=== PATIENT | male | born 2000 | race Caucasian/White ===

== ENCOUNTER → 2021-04-06 | Outpatient (CLI) | payer BC ==
--- NOTE | 2021-04-06 20:00 | ECHOF ---
Referral Reason:R94.31 Abnormal EKG MEASUREMENTS -------- HEIGHT: 182.9 cm WEIGHT: 77.1 kg BP: IVSd: 0.9 cm (0.6 - 1.1) LVIDd: 4.8 cm (3.9 - 5.3) LVPWd: 0.7 cm (0.6 - 1.1) EDV(Teich): 110 ml IVSs: 1.2 cm LVIDs: 3.0 cm LVPWs: 1.5 cm %IVS Thck: 30 % ESV(Teich): 35 ml EF(Teich): 68 % %FS: 38 % SV(Teich): 74 ml RVIDd: 3.5 cm (< 3.3) LALs A4C: 4.6 cm LAAs A4C: 15.1 cm LAESV A-L A4C: 43 ml LAESV MOD A4C: 41 ml LALs A2C: 5.1 cm LAAs A2C: 16.5 cm LAESV A-L A2C: 46 ml LAESV MOD A2C: 45 ml LAESV(A-L): 46 ml LAESV Index (A-L): 23.36 ml/m Ao Diam: 3.1 cm (2.0 - 3.7) LA Diam: 3.2 cm (2.7 - 3.8) AV Cusp: 2.3 cm (1.5 - 2.6) EPSS: 0.5 cm MV E Paul: 0.98 m/s MV DecT: 245 ms MV Dec [place]: 4.0 m/s MV A Paul: 0.33 m/s MV E/A Ratio: 2.94 MV PHT: 71 ms LVOT Vmax: 1.36 m/s LVOT maxP.43 mmHg TR Vmax: 2.44 m/s TR maxP.77 mmHg RAP: 5.00 mmHg RVSP: 28.77 mmHg MV EF SLOPE: 158.26 mm/s (70 - 150) MV EXCURSION: 23.89 mm (> 18.000) FINDINGS -------- Resting bradycardia (HR<60bpm). This was a technically adequate study. The left ventricular size is normal. Left ventricular wall thickness is normal. Overall left vent ricular systolic function is normal with, an EF between 55 - 60 %. The diastolic filling pattern is normal for the age of the patient 7.81. The right ventricle is mildly enlarged. Normal LA size by volume 22+/-6 ml/m2. The right atrial size is normal. Interatrial and interventricular septum intact. The aortic valve is trileaflet and appears structurally normal. There is no evidence of aortic regu rgitation. There is no evidence of aortic stenosis. There is trace mitral regurgitation. Mild tricuspid regurgitation present. There is no evidence of pulmonary hypertension. The right v entricular systolic pressure, as measured by Doppler, is 28.77mmHg. Trace/mild (physiologic) pulmonic regurgitation. The aortic root size is normal. IVC Not well visulized. There is no pericardial effusion. CONCLUSIONS -------- 1. The left ventricular size is normal. 2. Left ventricular wall thickness is normal. 3. Overall left ventricular systolic function is normal with, an EF between 55 - 60 %. 4. The diastolic filling pattern is normal for the age of the patient 7.81 5. The right ventricle is mildly enlarged. 6. There is trace mitral regurgitation. 7. Mild tricuspid regurgitation present. 8. Trace/mild (physiologic) pulmonic regurgitation. MANAGER USER EXPERIENCE: Marilyn Olvera RDCS
== END | disposition home or self-care (01) ==
LOC: RADECHMAIN 12:55
PROVIDERS: ATTEND Family Medicine
DX: I08.8 Other rheumatic multiple valve diseases (principal)
CPT/HCPCS: 93306